=== PATIENT | female | born 1990 | race Caucasian/White ===

== ENCOUNTER → 2024-06-18 | Emergency (ER) | payer MEDICAID ==
[~2024-06-18] VITALS: Ht 149.9 cm; Wt 46.4 kg
[~2024-06-18] MED LIST: ABX; PREN-125
[2024-06-18 15:59] VITALS: BP 129/93
[2024-06-18 18:36] VITALS: PULSE 85; RESP 18; O2SAT 95
== END | disposition home or self-care (01) ==
LOC: ER 15:58
DX: R25.2 Cramp and spasm (principal); F41.9 Anxiety disorder, unspecified; F32.9 Major depressive disorder, single episode, unspecified; T43.295A Adverse effect of other antidepressants, initial encounter; Y92.9 Unspecified place or not applicable